=== PATIENT | male | born 1980 | race Caucasian/White ===

== ENCOUNTER 2021-04-28 15:48 | Inpatient (IN) | payer OTHER ==
[~2021-04-28] VITALS: Ht 180.3 cm; Wt 90.0 kg
[~2021-04-28 15:48] MED LIST: ACAMPROSATE CA333 MG PO; AMLODIPINE BESYL5 MG PO; BACTRIM DS TAB1 EACH PO; CEFUROXIME500 MG PO; ESSENTIAL DAIL1 EACH PO; FEOSOL325 MG PO; FOLIC ACID 1 MG1 MG PO; IBU600 MG PO; K-DUR TAB 20 M20 MEQ PO; LIBRIUM CAP 1010 MG PO; LIBRIUM CAP 2525 MG PO; LISINOPRIL20 MG PO; LOPERAMIDE2 MG PO; LOPRESSOR 50 MG50 MG PO; NEURONTIN600 MG PO; NORVASC 5 MG TAB5 MG PO; NOVOLIN 70100 UNIT/1 SQ; OMEPRAZOLE40 MG PO; ONDANSETRON HCL8 MG PO; PHENERGAN 12.12.5 M1 PO; PROTONIX40 MG PO; PROZAC40 MG PO; TACTINAL325 MG PO; THERAGRAN M TAB1 EA PO; TRAZODONE HCL100 MG PO; TRAZODONE HCL300 MG PO; VITAMIN B-1100 MG PO; WELLBUTRIN 100100 MG PO; WELLBUTRIN XL150 MG PO; ZOLOFT100 MG PO
[2021-04-28 16:16] LABS: HEMOGLOBIN 12.9 gm/dl (14.0-17.5); RED BLOOD COUNT 4.29 M/UL (4.20-5.50); WHITE BLOOD COUNT 10.6 K/UL (4.5-11.0)
[2021-04-28 16:42] LABS: BUN/CREATININE RATIO 11 (0-10)
[2021-04-28] MEDS ORDERED: LISINOPRIL-HCT1 EACH PO (19:51)
[2021-04-28] MEDS ORDERED: OMEPRAZOLE20 MG PO (19:51)
[2021-04-28] MEDS ORDERED: WELLBUTRIN XL300 M1 PO (19:53)
[2021-04-28] MEDS ORDERED: TRAZODONE HCL150 MG PO (19:53)
[2021-04-28] MEDS ORDERED: SEROQUEL25 MG PO (19:55)
--- NOTE | 2021-04-28 20:07 | NUR ---
PATIENT STATES HE DID NOT TRY TO COMMIT SUICIDE, HE STATES THAT HE TOOK ALL THE MEDICATIONS BECAUSE "HE WAS BEING STUPID". HE STATES HE DOESN'T WANT TO KILL HIMSELF. SITTER AT BEDSIDE.
--- NOTE | 2021-04-28 21:59 | NUR ---
2120: STEVE FROM [facility] CONTACTED THIS NURSE IN REGARDS TO UPDATE ON PATIENT CONDITION. ALL QUESTIONS ANSWERS, ORDERS RECIEVED. SINCE QTC IS PROLONGED FROM TRAZADONE USE IT IS IMPORTANT TO MAKE SURE POTASSIUM AND MAGNEISUM LEVELS ARE WNL TO DECREASE THE RISK OF PATIENT GOING INTO TORSADES. MAKE SURE TO REPLACE BOTH IF LEVELS ARE LOW, REPEAT EKG IN AM TO MONITOR QTC LESS THAN 450.
[2021-04-29 02:59] LABS: HEMOGLOBIN 11.5 gm/dl (14.0-17.5); RED BLOOD COUNT 3.9 M/UL (4.20-5.50)
[2021-04-29 03:04] LABS: WHITE BLOOD COUNT 4.9 K/UL (4.5-11.0)
[2021-04-29 04:03] LABS: BUN/CREATININE RATIO 12 (0-10)
--- NOTE | 2021-04-29 21:00 | NUR ---
Spoke with Caty from [facility] and she said that she had spoken with their nurse practitoner and that they would not be accepting the patient at this time because he did not meet their criteria for medical clearance. Caty said to monitor him overnight for possible transfer in the morning if his labs improved.
[2021-04-30 10:26] LABS: BUN/CREATININE RATIO 12 (0-10)
== END 2021-04-30 21:30 | DRG 918 ==
LOC: ER1 15:48 → CDU 17:14 → CCU 19:39 → M/S 04-29 11:53
PROVIDERS: Preventive Medicine Occupational Medicine; ADMIT Internal Medicine
DX: T43.212A Poisoning by selective serotonin and norepinephrine reuptake inhibitors, intentional self-harm, initial encounter (principal); M62.82 Rhabdomyolysis; Z20.822 Contact with and (suspected) exposure to COVID-19; T43.291A Poisoning by other antidepressants, accidental (unintentional), initial encounter; I10 Essential (primary) hypertension; F10.10 Alcohol abuse, uncomplicated; E11.9 Type 2 diabetes mellitus without complications; F32.A Depression, unspecified; G47.33 Obstructive sleep apnea (adult) (pediatric); F41.1 Generalized anxiety disorder; Z91.14 Patient's other noncompliance with medication regimen; Z79.4 Long term (current) use of insulin; Z87.442 Personal history of urinary calculi; Z85.038 Personal history of other malignant neoplasm of large intestine; Z87.01 Personal history of pneumonia (recurrent); Z88.8 Allergy status to other drugs, medicaments and biological substances; Z82.49 Family history of ischemic heart disease and other diseases of the circulatory system
CPT/HCPCS: 36415; 36600; 71045; 80048; 80053; 80307; 81001; 82140; 82550; 82553; 82803; 82962; 83036; 83690; 83735; 85025; 85652; 86140; 87086; 93005; 96374; 96375; 99285; C9113; G0480; J1650; J2060; J3411; J3486; J7030; U0002

== ENCOUNTER → 2021-06-15 | Outpatient (CLI) | payer OTHER ==
[~2021-06-15] MED LIST changes: +LISINOPRIL-HCT1 EACH PO; +OMEPRAZOLE20 MG PO; +SEROQUEL25 MG PO; +TRAZODONE HCL150 MG PO; +WELLBUTRIN XL300 M1 PO
== END ==
LOC: KOH-I 08:19
DX: M25.512 Pain in left shoulder (principal); R93.6 Abnormal findings on diagnostic imaging of limbs
CPT/HCPCS: 73030